=== PATIENT | female | born 1990 | race Caucasian/White ===

== ENCOUNTER 2017-05-25 07:19 | Outpatient (CLI) | payer MEDICAID ==
--- NOTE | 2017-05-29 16:04 | Ultrasound Report ---
OB ULTRASOUND: 05/25/2017 CLINICAL INDICATION: anatomy. TECHNIQUE: Real-time scanning was performed with enrollment representative static images obtained. LAST MENSTRUAL PERIOD: unsure 12/2016 Clinical Age: -- US Age: 20 weeks 3 days EFW Hadlock: 360 gm EFW% Hadlock: -- Heart Rate: 137 bpm EDC: -- US EDC: 10/09/2017 BPD Hadlock: 20 weeks 1 day; Mean mm 47 HC Hadlock: 20 weeks 2 days; Mean mm 177 AC Hadlock: 20 weeks 5 days; Mean mm 155 FL Hadlock: 20 weeks 3 days; Mean mm 34 Presentation: moving Placental Location: anterior Cervical Length: 3.9 cm Amniotic Fluid: 14.9 cm FINDINGS: There is a single viable intrauterine gestation, in variable position. heart rate is 137 BPM. The placenta is anterior, without evidence of previa. Amniotic fluid volume is subjectively normal. By size, the fetus measures 20 weeks 3 days (uncertain LMP). The following anatomic structures were visualized and appear normal: The intracranial contents, including the ventricles and posterior fossa; the lips and orbits; the spine; the heart, including 4 chamber view and outflow tracts, and diaphragm; the abdominal contents, including the stomach, the bilateral kidneys, and urinary bladder, as well as a normal 3 vessel cord insertion; 4 limbs. No free fluid or adnexal lesion is appreciated. IMPRESSION: SINGLE VIABLE INTRAUTERINE GESTATION, MEASURING 20 WEEKS 3 DAYS BY SIZE. NORMAL ANATOMIC SURVEY. TD: 05/25/2017 11:56 MTDD
== END 2017-05-25 07:20 | disposition home or self-care (01) ==
LOC: DI 07:19
PROVIDERS: ATTEND Obstetrics & Gynecology
DX: Z36.9 Encounter for antenatal screening, unspecified (principal)
CPT/HCPCS: 76811

== ENCOUNTER 2017-09-13 08:00 | Outpatient (CLI) | payer MEDICAID | END 2017-09-13 23:59 | LOC: LAB.R 08:00 | PROVIDERS: ATTEND Obstetrics & Gynecology | DX: Z36.9 Encounter for antenatal screening, unspecified (principal) | CPT/HCPCS: 87081 ==

== ENCOUNTER 2017-09-27 16:35 | Outpatient (CLI) | payer MEDICAID ==
[2017-09-27 16:54] VITALS: BP 131/76
== END 2017-09-27 17:38 | disposition home or self-care (01) ==
LOC: WFO 16:35 → FBP 16:38 → WFO 17:38
PROVIDERS: ATTEND Obstetrics & Gynecology
DX: O36.8130 Decreased fetal movements, third trimester, not applicable or unspecified (principal); Z3A.38 38 weeks gestation of pregnancy
CPT/HCPCS: 59025

== ENCOUNTER 2017-10-02 11:38 | Outpatient (CLI) | payer MEDICAID ==
[2017-10-02 12:02] LABS: BASOPHILS # (AUTO) 0.1 10^3/uL (0.0-0.1); BASOPHILS % (AUTO) 0.9 %; EOSINOPHILS # (AUTO) 0.1 10^3/uL (0.0-0.7); EOSINOPHILS % (AUTO) 1.8 %; HGB - HEMOGLOBIN 11.5 g/dL (12.0-16.0); LYMPHOCYTES # (AUTO) 1.3 10^3/uL (1.5-3.5); LYMPHOCYTES % (AUTO) 18.3 %; MEAN CORPUSCULAR HEMOGLOBIN 27.3 pg (27.0-31.0); MEAN CORPUSCULAR HGB CONC 33.2 g/dL (32.0-36.0); MEAN CORPUSCULAR VOLUME 82.2 fL (81.0-99.0); MEAN PLATELET VOLUME 9.7 fL (7.9-10.8); MONOCYTES # (AUTO) 0.6 10^3/uL (0.0-1.0); MONOCYTES % (AUTO) 7.6 %; NEUTROPHILS # (AUTO) 5.2 10^3/uL (1.5-6.6); NEUTROPHILS % (AUTO) 71.4 %; PLT - PLATELET COUNT 217 10^3/uL (130-450); RED BLOOD COUNT 4.22 10^6/uL (4.20-5.40); RED CELL DISTRIBUTION WIDTH 13.6 % (12.0-15.0); WHITE BLOOD COUNT 7.3 x10^3/uL (4.8-10.8)
[2017-10-02 12:43] LABS: BILIRUBIN,URINE NEGATIVE (NEGATIVE); GLUCOSE, URINE (UA) NEGATIVE (NEGATIVE); KETONES,URINE (UA) 15 mg/dL (NEGATIVE); LEUKOCYTE ESTERASE, URINE NEGATIVE (NEGATIVE); NITRITE,URINE NEGATIVE (NEGATIVE); OCCULT BLOOD,URINE SMALL (NEGATIVE); PROTEIN,URINE TRACE mg/dL (NEGATIVE); UROBILINOGEN,URINE 0.2 (NORMAL) E.U./dL (NORMAL)
[2017-10-02 12:45] LABS: CLARITY,URINE CLEAR (CLEAR)
== END 2017-10-02 11:39 | disposition home or self-care (01) ==
LOC: LAB 11:38
PROVIDERS: ATTEND Obstetrics & Gynecology
DX: Z01.812 Encounter for preprocedural laboratory examination (principal)
CPT/HCPCS: 36415; 81003; 85025; 86850; 86900; 86901

== ENCOUNTER 2017-10-03 05:21 | Inpatient (IN) | payer MEDICAID ==
--- NOTE | 2017-10-02 12:06 | PREOP HISTORY & PHYSICAL ---
DATE OF SERVICE: 10/03/2017 Physician: J Luis Recinos MD DIAGNOSES 1. Prior section. 2. 39 weeks 1 day gestation. 3. Desires sterilization. HISTORY OF PRESENT ILLNESS: Patient is a 27-year-old 2, para 1-0-0-1 woman with a history of prior section. She is status post prior section for CPD yielding a living male infant, 3657 grams. Procedure was uneventful. She has had regular care at the [facility] starting on 16 March. She has had a total of 11 visits. Her dating is fixed by early ultrasound at 09 October. She has had no problems noted in her record. PAST MEDICAL HISTORY: No abnormal Pap smear or STI history. No chronic disease history. Patient has had prior difficulty with depression and anxiety but not a factor currently.. REVIEW OF SYSTEMS CONSTITUTIONAL: Negative. HEENT: Negative. CARDIOVASCULAR: Negative. RESPIRATORY: Negative. GASTROINTESTINAL: Negative. GENITOURINARY: Negative. MUSCULOSKELETAL: Negative. NEUROLOGIC: Negative. HEMATOLOGIC LYMPHATIC: Negative. No easy bleeding tendencies reported. FAMILY HISTORY: Asthma, colon cancer in the maternal grandmother. No breast or ovarian cancer. Depression. SOCIAL HISTORY: Not currently , but in a stable relationship. Former smoker. Coffee drinker. No formal diet and exercise program. No alcohol or drug use reported. PHYSICAL EXAMINATION GENERAL: Well groomed, pleasant, alert, oriented. VITAL SIGNS: Weight 225, blood pressure 110/62. HEENT: Anicteric sclerae. EOMI. Dentition in good repair. NECK: No thyromegaly. Supple. LUNGS: Clear to auscultation. CARDIOVASCULAR: Regular. No murmur. No gallop. ABDOMEN: No hepatosplenomegaly or epigastric tenderness. Uterus gravid appropriate size for 39 weeks. heart tones present. EXTERNAL GENITALIA: No lesions. CERVIX: Internal exam not done. EXTREMITIES: Nonedematous, moves all 4 extremities well. NEUROLOGIC: Grossly intact. SKIN: No obvious rash or needle barr. ADMISSION LABORATORY DATA: Pending. ASSESSMENT: This is a 09-esvc-6-day gestation who has had a prior section, and after counseling rejects . She is aware of the risks and potential benefits of repeat section. She realizes that there is possibility of blood loss, transfusion, infection, damage to intestines, urinary tract and possibly fetus. Preoperative consent signed. PLAN: Repeat lower segment transverse section under spinal anesthetic on 03 October. Ancef 2 grams will be given prophylactically. Informed consent signed. All questions answered. TD: 10/02/2017 11:38 REVISED 10/04/2017 [email or web address] ACCT/DATE TRXN CORRECTIONS ORIG. SIGNED 10/02/2017@2106 MTDD
[2017-10-03] MEDS ORDERED: ceFAZolin 2 GM/50 ML 2 GM/50 ML BAG IV SCH (05:45)
[2017-10-03] MEDS ORDERED: SODIUM CHLORIDE FLUSH 0.9% 10 ML SYRINGE ONE ×2 (05:48→09:00)
[2017-10-03] MEDS ORDERED: LACTATED RINGERS 1,000 ML IV ONE ×4 (05:48→08:36)
[2017-10-03] MEDS ORDERED: CITRIC ACID/SODIUM CITRATE 15 ML UDC PO ONE (06:34)
[2017-10-03 07:02] LABS: BASOPHILS % (AUTO) 0.7 %; EOSINOPHILS # (AUTO) 0.2 10^3/uL (0.0-0.7); EOSINOPHILS % (AUTO) 2.4 %; HGB - HEMOGLOBIN 10.7 g/dL (12.0-16.0); LYMPHOCYTES # (AUTO) 1.8 10^3/uL (1.5-3.5); LYMPHOCYTES % (AUTO) 26.1 %; MEAN CORPUSCULAR HEMOGLOBIN 26.5 pg (27.0-31.0); MEAN CORPUSCULAR HGB CONC 32.4 g/dL (32.0-36.0); MEAN CORPUSCULAR VOLUME 81.9 fL (81.0-99.0); MEAN PLATELET VOLUME 9.8 fL (7.9-10.8); MONOCYTES # (AUTO) 0.8 10^3/uL (0.0-1.0); MONOCYTES % (AUTO) 11.9 %; NEUTROPHILS # (AUTO) 4.1 10^3/uL (1.5-6.6); NEUTROPHILS % (AUTO) 58.9 %; PLT - PLATELET COUNT 250 10^3/uL (130-450); RED BLOOD COUNT 4.03 10^6/uL (4.20-5.40); RED CELL DISTRIBUTION WIDTH 13.5 % (12.0-15.0); WHITE BLOOD COUNT 6.9 x10^3/uL (4.8-10.8)
[2017-10-03] MEDS ORDERED: MORPHINE PF 5 MG/10 ML AMP EP ONE (08:35)
[2017-10-03] MEDS ORDERED: ONDANSETRON 4 MG/2 ML VIAL IVP ONE (08:35)
[2017-10-03] MEDS ORDERED: OXYTOCIN 10 UNIT/ML VIAL IV ONE (08:35)
[2017-10-03] MEDS ORDERED: METHYLERGONOVINE 0.2 MG/ML AMP IVP ONE (09:00)
--- NOTE | 2017-10-03 09:15 | OPERATIVE REPORT ---
Operative Report - General Admit Date: 10/03/17 Planned Procedure: Repeat section and sterilization Pre-Op Diagnosis: Prior section, refused; desires sterilization; 39 week 1 day Procedure Performed: Repeat lower segment transverse section; bilateral salpingectomy Post Op Diagnosis: Successful delivery of living female ; same as above - Procedure Note Primary Surgeon: J Luis Recinos MD Secondary Surgeon: Glenis Otero, certified nurse copy and print associate Anesthesia Provider: Giovanna Gonzalez certified nurse sharepoint application developer Anesthesia Technique: Spinal Pathology: Tubal segments IV Fluids (mL): 1,300 Estimated Blood Loss (mL): 600 Urine Output (mL): 125 (Clear) Drain/Tube Type: Other (Padron catheter) Complications: None
[2017-10-03] MEDS ORDERED: SODIUM CHLORIDE FLUSH 0.9% 10 ML SYRINGE IVP PRN ×2 (09:17→09:21)
[2017-10-03] MEDS ORDERED: ONDANSETRON 4 MG/2 ML VIAL IVP PRN (09:17)
[2017-10-03] MEDS ORDERED: HYDROmorphone 2 MG TABLET PO PRN (09:21)
[2017-10-03] MEDS ORDERED: diphenhydrAMINE 25 MG CAPSULE PO PRN ×2 (09:21→12:00)
[2017-10-03] MEDS ORDERED: LACTATED RINGERS 1,000 ML IV SCH (10:00)
[2017-10-03] MEDS ORDERED: KETOROLAC 30 MG/ML VIAL IVP PRN (11:22)
[2017-10-03] MEDS ORDERED: ACETAMINOPHEN 1,000 MG/100 ML 100 ML IV PRN (11:23)
[2017-10-03] MEDS: IBUPROFEN 600 MG TABLET PO SCH ×2 (11:45→17:57)
[2017-10-03] MEDS ORDERED: METOCLOPRAMIDE 10 MG/2 ML VIAL IVP PRN (12:00)
[2017-10-03] MEDS ORDERED: NALBUPHINE 20 MG/ML AMP IVP PRN (12:00)
--- NOTE | 2017-10-03 12:53 | OPERATIVE REPORT ---
DATE OF SERVICE: 10/03/2017 Physician: J Luis Recinos MD PREOPERATIVE DIAGNOSES 1. Prior section, vaginal after refused after counseling. 2. Desires sterilization. 3. A 39-week plus . POSTOPERATIVE DIAGNOSES 1. Successful delivery of living female . 2. Prior section, vaginal after refused after counseling. 3. Sterilization Accomplished. 4. A 39-week plus . PROCEDURES PERFORMED: Repeat lower segment transverse section; bilateral salpingectomy. SURGEON: J Luis Recinos MD, FACOG, FICS. ASSISTANTS: Glenis Otero, certified nurse water maintenance supervisor. ANESTHESIA: Giovanna Gonzalez, certified nurse pearl maker. ANESTHESIA TYPE: Spinal. COMPLICATIONS: None. ESTIMATED BLOOD LOSS: 600cc PATHOLOGY: Tubal segments sent, right segment has suture marking. INTRAVENOUS FLUIDS: 1300 URINE OUTPUT: 240 cc, clear. FINDINGS: At 0814 hours, a living female was born weighing 7 pounds 7.6 ounces and scoring Apgars of 9/9. There was no obvious trauma or congenital anomalies. had a lusty cry. The placenta was expressed intact with a 3-vessel cord. There was no significant cord entanglement. There was no evidence of abruption or infection on the placenta itself. The uterus was normal, without intracavitary defects or evidence of leiomyoma. Both tubes seemed to be open and fluffy. The ovaries appeared to be normal with slight decidual reaction. TECHNIQUE: Prior to the procedure, I reviewed the mechanics and risks/ benefits. Patient confirmed that she desires sterilization via bilateral salpingectomy. All paperwork and consents were signed. Patient was placed on the operating table in the sitting position. Spinal anesthesia was uneventfully placed and she was moved to supine. She was prepped and draped in the customary sterile fashion. Timeout briefing was done per protocol. We tested anesthesia , to ensure that it was dense through level T10, and began the procedure. The abdomen was opened uneventfully with Pfannenstiel incision. The fetus and its location were assessed by palpation. A small bladder flap was opened with Metzenbaums. A curvilinear hysterotomy was cut with a scalpel and lengthened with gentle finger traction. Chief Engineer secured the head with his right hand, and assistant brand manager applied fundal pressure. The head was uneventfully delivered through the hysterotomy and laparotomy. Oral and nasopharynx were thoroughly suctioned. Shoulders were atraumatically delivered. Cord was doubly clamped and transected. The infant was handed to the waiting pediatric nursing team. Cord blood was sent. Cord gases were not necessary. The uterus was exteriorized. With gentle massage, the placenta was removed intact. The hysterotomy was closed in 2 layers with first an interlocking stitch of 0 Vicryl , followed by an imbricating stitch of 0 Vicryl. Care was taken to liberate portion of the bladder that was fairly high in the right lower uterine segment. Bladder flap was closed with a running stitch of 3-0 Vicryl. Attention was then turned to salpingectomy. First, the right tube was placed on tension and the adhesions between tube and ovary were divided with LigaSure. Next, on the mesentery, the tube was desiccated and divided with LigaSure. Finally, it was excised in total using the LigaSure. The procedure was then repeated on the left-hand side. Right tube had a marking suture of 2-0 Vicryl. We watched the operative site for 2-3 minutes to ensure it was hemostatically secure. The uterus was then placed back within the abdomen. The operative sites were inspected and found to be secure. Peritoneum was closed with a running stitch of 2-0 chromic. Multiple stitches of 2-0 Vicryl were used to tack the rectus muscle back together in the midline. Fascia was closed with a running stitch of 0 Vicryl. Interrupted stitches of 2-0 Vicryl, closed the deep space. Skin was closed with a running subcuticular stitch of 4-0 Monocryl and dressed with Dermabond. At the end of the case, all sponge, needle, and instrument counts were confirmed as correct. Patient was uneventfully aroused and taken to the recovery room in stable condition. TD: 10/03/2017 09:44 DENISSE
[2017-10-03] MEDS ORDERED: SODIUM CHLORIDE FLUSH 0.9% 10 ML SYRINGE IVP SCH (17:00)
[2017-10-03] MEDS ORDERED: MAGNESIUM HYDROXIDE 2,400 MG/30 ML UDC PO ONE (20:00)
[2017-10-03] MEDS: DOCUSATE SODIUM 100 MG CAPSULE PO SCH (21:43)
[2017-10-03] MEDS: oxyCOD/ACETAMIN 5 MG/325 MG TABLET PO PRN (21:43)
[2017-10-03] MEDS: LACTULOSE 10 GM /15 ML UDC PO SCH (21:46)
[2017-10-04] MEDS: IBUPROFEN 600 MG TABLET PO SCH ×5 (00:42→22:02)
[2017-10-04] MEDS: oxyCOD/ACETAMIN 5 MG/325 MG TABLET PO PRN ×5 (02:33→20:59)
--- NOTE | 2017-10-04 04:22 | PROVIDER PROGRESS NOTE ---
Subjective - General Admit Date: 10/03/17 Procedure Date: 10/03/17 Post Op Days: 1 Procedure Performed: Repeat section with bilateral salpingectomy - Review of Systems Wound/Incisions: positive: Dressing dry and intact (Dermabond seal in place, wound appears normal for postop day 1) General: positive: No symptoms HEENT: positive: No symptoms Pulmonary: positive: No symptoms (Patient demonstrated use of incentive spirometer) Cardiovascular: positive: No symptoms Gastrointestinal: positive: No symptoms Genitourinary: positive: No symptoms (Mild non-foul lochia rubra) Musculoskeletal: positive: Other (No calf tenderness, SCDs in place) Skin: positive: No symptoms Psychiatric: positive: No symptoms Objective - Patient Data Vital Signs: Vital Signs x48h Temp Pulse Resp BP Pulse Ox 10/04/17 02:37 12 97 10/04/17 01:55 70 16 96 10/04/17 00:28 98.4 F 73 16 94/55 L 96 10/03/17 23:28 80 16 96 10/03/17 22:49 64 16 95 10/03/17 21:25 98.2 F 65 18 103/56 L 98 Weight: Weight 10/02/17 10/03/17 10/04/17 23:59 23:59 23:59 Weight (kg) 99.79 kg Intake & Output: Intake and Output Totals x24h 10/02/17 10/03/17 10/04/17 23:59 23:59 23:59 Intake Total 1010 Output Total 900 950 Balance 110 -950 - Lab Results Lab Results: 10/03/17 06:25 Other Lab Results: Lab Results x24hrs 10/03/17 10/03/17 Range/Units 06:50 06:25 WBC 6.9 (4.8-10.8) x10^3/uL RBC 4.03 L (4.20-5.40) 10^6/uL Hgb 10.7 L (12.0-16.0) g/dL Hct 33.0 L (37.0-47.0) % MCV 81.9 (81.0-99.0) fL MCH 26.5 L (27.0-31.0) pg MCHC 32.4 (32.0-36.0) g/dL RDW 13.5 (12.0-15.0) % Plt Count 250 (130-450) 10^3/uL MPV 9.8 (7.9-10.8) fL Neut # 4.1 (1.5-6.6) 10^3/uL Lymph # 1.8 (1.5-3.5) 10^3/uL Jasper # 0.8 (0.0-1.0) 10^3/uL Eos # 0.2 (0.0-0.7) 10^3/uL Baso # 0.0 (0.0-0.1) 10^3/uL Absolute Nucleated RBC 0.00 x10^3/uL Nucleated RBC % 0.0 /100WBC Blood Type B POSITIVE Antibody Screen NEGATIVE - Current Medications Current Medications: Current Medications Generic Name Dose Route Start Last Admin Trade Name Freq PRN Reason Stop Dose Admin Docusate Sodium 100 mg 10/03/17 21:00 10/03/17 21:43 Colace 100mg Capsule PO 100 mg BID HAMZAH Administration Acetaminophen 100 mls @ 400 mls/hr 10/03/17 11:23 10/03/17 14:53 Ofirmev IV 10/06/17 11:22 Infused ONCE PRN Infusion PAIN Ibuprofen 600 mg 10/03/17 10:00 10/04/17 00:42 Motrin PO 600 mg Q6H HAMZAH Administration Lactulose 10 gm 10/03/17 17:00 10/03/17 21:46 Enulose PO Not Given QDDINNER HAMZAH Oxycodone/Acetaminophen 1 tab 10/03/17 14:05 10/04/17 02:33 Percocet 5 Mg/325 Mg PO 1 tab Q4HR PRN Administration PAIN Physical Exam - Physical Exam General: positive: No acute distress HEENT: positive: Moist mucous membranes Neck: positive: Supple w/out meningeal sx Cardiac: positive: Regular Rate Resipratory: positive: Clear to ausultation mundo Abdomen: positive: Normal Bowel sounds, Surgical Scars (Surgical wound dry and intact) Female : positive: Enlarged uterus (17 week size uterus, firm nontender) Extremities: positive: Normal ROM, Non tender Skin: positive: Warm and dry Neurologic: positive: Alert and Oriented X 3, Normal motor/no weakness, Normal Sensation, Normal Speech Assessment/Plan - Assessment/Plan Assessment: Patient is recovering well from section. She is nursing without difficulty. Patient was anemic with a hemoglobin of 10.8 preoperatively and expected to dip down. Patient hemodynamically stable and anemia tolerated. Await 05 100 blood draw Plan: PLAN * Continue supportive care and breast-feeding coaching. * Await morning hemoglobin results. * Begin iron sulfate supplementation in addition to vitamins. * Will transfer care at [address] Jeaneth Best
[2017-10-04 06:52] LABS: BASOPHILS % (AUTO) 0.5 %; EOSINOPHILS # (AUTO) 0.3 10^3/uL (0.0-0.7); EOSINOPHILS % (AUTO) 3.4 %; LYMPHOCYTES # (AUTO) 1.6 10^3/uL (1.5-3.5); LYMPHOCYTES % (AUTO) 20.9 %; MEAN CORPUSCULAR HEMOGLOBIN 26.9 pg (27.0-31.0); MEAN CORPUSCULAR HGB CONC 32.8 g/dL (32.0-36.0); MEAN CORPUSCULAR VOLUME 82.1 fL (81.0-99.0); MEAN PLATELET VOLUME 9.5 fL (7.9-10.8); MONOCYTES # (AUTO) 0.9 10^3/uL (0.0-1.0); MONOCYTES % (AUTO) 11.6 %; NEUTROPHILS # (AUTO) 4.9 10^3/uL (1.5-6.6); NEUTROPHILS % (AUTO) 63.6 %; PLT - PLATELET COUNT 184 10^3/uL (130-450); RED BLOOD COUNT 3.72 10^6/uL (4.20-5.40); RED CELL DISTRIBUTION WIDTH 13.5 % (12.0-15.0); WHITE BLOOD COUNT 7.6 x10^3/uL (4.8-10.8)
[2017-10-04] MEDS: DOCUSATE SODIUM 100 MG CAPSULE PO SCH ×2 (10:59→20:59)
[2017-10-04] MEDS: FERROUS SULFATE 325 MG TABLET PO SCH ×2 (11:07→21:40)
[2017-10-04] MEDS: PRENATAL VITAMIN TABLET PO SCH (11:11)
[2017-10-04] MEDS: LACTULOSE 10 GM /15 ML UDC PO SCH (20:58)
[2017-10-04] MEDS: SODIUM CHLORIDE FLUSH 0.9% 10 ML SYRINGE IVP SCH ×3 (22:02→22:04)
[2017-10-04] MEDS: LACTATED RINGERS 1,000 ML IV SCH ×2 (22:02→22:04)
[2017-10-05] MEDS: oxyCOD/ACETAMIN 5 MG/325 MG TABLET PO PRN ×4 (00:48→12:35)
[2017-10-05] MEDS: IBUPROFEN 600 MG TABLET PO SCH ×3 (00:49→12:35)
--- NOTE | 2017-10-05 04:53 | DISCHARGE SUMMARY ---
Physician: Jeaneth Best DO DATE OF ADMISSION: 10/03/2017 DATE OF DISCHARGE: 10/05/2017 DIAGNOSES ON ADMISSION 1. A 27-year-old G2, P1-0-0-1, with a 39-1/7-week intrauterine . 2. Prior delivery x1. 3. Desired permanent sterilization. DIAGNOSES ON DISCHARGE 1. A 27-year-old G2, P2-0-0-2, status post repeat delivery on 2017 as well as a bilateral salpingectomy. 2. Normal recovery. BRIEF HISTORY: The patient is a patient of [facility] who presented on 10/03/2017 for a scheduled repeat delivery. The patient underwent a delivery with her first secondary to failure to progress during a 41-week induction. This has essentially been unremarkable, and the patient received routine care that was consistent. The patient underwent a repeat delivery as well as bilateral salpingectomy on 10/03/2017. She delivered a viable female named "Roxana Call." Apgars were 9 and 9 at one and five minutes, respectively, and EBL was 600 mL. There were no complications. The patient's postoperative course has been essentially unremarkable. By postoperative day #2, she was ambulating and tolerating a regular diet. The patient's pain is controlled with oral medications, and she is urinating without difficulty. The patient currently is successfully . The patient will be discharged to home on 10/05/2017, postoperative day #2. The patient already has prescriptions for ibuprofen and stool softeners at home. I will go ahead and write a prescription for oxycodone for any breakthrough pain that Tylenol and Motrin do not take care of. The patient to see Dr. J Luis Recinos in 2 weeks for routine postoperative incision check. She will then return for 8-week visit. The patient is to call should she have any worsening fevers, chills, abdominal pain or vaginal bleeding. TD: 10/04/2017 17:33 DENISSE
--- NOTE | 2017-10-05 08:15 | PROVIDER PROGRESS NOTE ---
Subjective - Prog Note Date Prog Note Date: 10/05/17 Prog Note Time: 08:13 - Subjective Pt reports feeling: Improved Subjective: Hillary lying in bed, baby laying on Boppi and breast feeding. Hillary eating regular diet. Reports pain controlled at 3-4/10. Ambulating and tolerating a regular diet. Normal lochia. Urinating without difficulty. Desires to go home. Objective - Vital Signs/Intake & Output Reviewed Vital Signs: Yes Intake & Output: Intake & Output 10/02/17 10/03/17 10/04/17 10/05/17 23:59 23:59 23:59 23:59 Intake Total 1010 Output Total 900 2500 Balance 110 -2500 - Objective General Appearance: positive: No acute distress Eyes Bilateral: positive: Normal inspection Abdomen: positive: Non-tender, Other (Incision clean, dry and intact. Abdomen benign, no peritoneal signs.) - Lab Results Fish Bones: 10/04/17 06:15 Assessment/Plan - Problem List (1) delivery delivered Impression: 27 yo S/p repeat delivery and bilateral salpingectomy 10/03/2017 , POD#2. Normal recovery, doing well. Will discharge to home. Patient states she has Tylenol and Motrin at home. Rx for oxycodone for breakthrough pain. Return in 2 weeks for a routine incision check. OK to shower and small walks outside. Pelvic rest, and no lifting > 10 pounds. Do not recommend driving at this time. Call for fevers, chills, abdominal pain or worsening vaginal bleeding. Discharge summary dictated [id number] Discharge Plan Disposition: 01 Home, Self Care Condition: Good Diet: Regular Activity Restrictions: Activity as Tolerated (No lifting greater than 10 pounds) Shower Restrictions: No Driving Restrictions: Yes (No driving) Weight Bearing: Full Weight No Smoking: If you smoke, Please STOP! Call for help.
[2017-10-05] MEDS: FERROUS SULFATE 325 MG TABLET PO SCH (08:51)
[2017-10-05] MEDS: DOCUSATE SODIUM 100 MG CAPSULE PO SCH (08:51)
[2017-10-05] MEDS: PRENATAL VITAMIN TABLET PO SCH (08:51)
[2017-10-05 10:59] VITALS: BP 114/60
== END 2017-10-05 14:45 | disposition home or self-care (01) | DRG 766 ==
LOC: FBP 05:21
PROVIDERS: ADMIT Obstetrics & Gynecology; ATTEND Obstetrics & Gynecology
PROC: 0UT70ZZ Resection of Bilateral Fallopian Tubes, Open Approach (ICD-10-PCS; 2017-10-03)
PROC: 10D00Z1 Extraction of Products of Conception, Low, Open Approach (ICD-10-PCS; principal; 2017-10-03 07:30)
DX: O34.219 Maternal care for unspecified type scar from previous cesarean delivery (principal); N85.8 Other specified noninflammatory disorders of uterus; O99.02 Anemia complicating childbirth; Z3A.39 39 weeks gestation of pregnancy; Z37.0 Single live birth; Z30.2 Encounter for sterilization; Z86.59 Personal history of other mental and behavioral disorders; Z87.891 Personal history of nicotine dependence
CPT/HCPCS: 36415; 85025; 86850; 86900; 86901; 88302

== ENCOUNTER 2017-12-06 08:00 | Outpatient (CLI) | payer MEDICAID | END 2017-12-06 08:01 | disposition home or self-care (01) | LOC: LAB.R 08:00 | PROVIDERS: ATTEND Obstetrics & Gynecology | DX: Z11.3 Encounter for screening for infections with a predominantly sexual mode of transmission (principal) | CPT/HCPCS: 87491; 87591 ==

== ENCOUNTER 2022-01-22 20:32 | Emergency (ER) | payer MEDICAID ==
[2022-01-22] MEDS ORDERED: predniSONE 20 MG TABLET PO STA (20:59)
[2022-01-22] MEDS ORDERED: IPRATROPIUM/ALBUTEROL 3 ML NEB INH STA (20:59)
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
[2022-01-22] MEDS ORDERED: ALBUTEROL NEB 2.5 MG/3 ML INH STA (21:21)
[2022-01-22] MEDS ORDERED: ALBUTEROL NEB 2.5 MG/3 ML INH ONE (21:36)
[2022-01-22 22:08] VITALS: BP 122/55
== END 2022-01-22 22:07 | disposition home or self-care (01) ==
LOC: ED 20:32
DX: J45.901 Unspecified asthma with (acute) exacerbation (principal)
CPT/HCPCS: 94640; 99283; 99284; J7512